=== PATIENT | male | born 1990 ===

== ENCOUNTER 2020-10-05 18:57 | Emergency (ER) | payer OTHER ==
[~2020-10-05] VITALS: Ht 172.7 cm; Wt 83.0 kg
[2020-10-05 19:00] VITALS: BP 151/99
--- NOTE | 2020-10-05 19:04 | NUR ---
DONNA FROM WORK. PT WAS FOUND LAYING OR SITTING BY HIS CAR AND COWORKER CALLED EMS. PT APPEARS TACHYCARDIC, SPEAKING INCOMPREHENSIBLE WORDS. WHEN TAKING PT TEMP PT WAS LICKING PROBE. PT KEEPS REINSTATING SAME WORDS OVER AND OVER AGAIN WELL PT SEEMS LIKE HE MAY BE PRESENTING WITH SOME SIGN OF PSYCHOSIS. PT DENIES HEAD TRAUMA. HAVING TROUBLE REMEMBER WHAT HAS HAPPENED THROUGHOUT DAY. DENIES SI/HI AND ANY PSYCH DISORDERS. ATTACHD TO CARD/SP02/BP MONITIRS. CHANGED INTO GOWN. WCTM WILL SPEAK TO CHARGE ABOUT PLACEMENT FOR PT
--- NOTE | 2020-10-05 19:25 | NUR ---
SPOKE TO CHARGE NURSE. WE WILL BE KEEPING PT IN THIS ROOM FOR NOW. 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 ATTEMPTIN TO HAVE PT URINATE BUT HE KEEPS REFUSING. EKG COMPLETED EARLIER
--- NOTE | 2020-10-05 19:35 | NUR ---
PT TAKEN TO BATHROOM. AMBULATED WITH STEADY GAIT. [facility] STATED HE COULD NOT WALK WHEN THEY PICKED HIM UP PT ATTEMPTING UA SAMPLE IN BATHROOM PT ASKED THIS NURSE IF I WANTED TO STAY AND WATCH AND STUCK HIS TONGUE OUT. WCTM
[2020-10-05 19:36] LABS: BASOPHILS % (AUTO) 1 % (0-1); EOSINOPHILS % (AUTO) 0 % (1-7); LYMPHOCYTES % (AUTO) 31 % (22-44); MEAN CORPUSCULAR HEMOGLOBIN 31.7 pg (27.5-34.5); MEAN PLATELET VOLUME 7.3 fL (7.4-10.4); MONOCYTES % (AUTO) 9 % (2-9); NEUTROPHILS % (AUTO) 59 % (42-75); PLATELET COUNT 361 x10^3/uL (130-400); RED BLOOD COUNT 5.18 x10^6/uL (4.38-5.82); RED CELL DISTRIBUTION WIDTH 13.1 % (9.4-14.8)
--- NOTE | 2020-10-05 19:44 | NUR ---
PT FOUND DOWN THE HALLWAY BY REGISTRATION. PT STATED HE LEFT UA IN BATHROOM. WHEN CHECKING BATHROOM THERE WAS NO URINE AND PT STATED THAT HE DID NOT HAVE TO PEE. PT BACK IN ROOM, ATTACHED TO ALL MONTORS. SPEAKING TO PEOPLE ON PHONE IN [place] LANGUAGE. [facility]
[2020-10-05 19:47] LABS: ALANINE AMINOTRANSFERASE 31 U/L (12-78); ANION GAP 8 mmol/L (5-15); CALCIUM 8.6 mg/dL (8.5-10.1); CHLORIDE 109 mmol/L (98-107)
[2020-10-05 19:49] LABS: SALICYLATE LEVEL < 1.7 mg/dL (2.8-20.0)
--- NOTE | 2020-10-05 19:53 | NUR ---
PT ELOPED. PT RAN THROUGH HOSPITAL WHILE BEING FOLLOWED BY A FELLOW ED NURSE. PT WAS SEEN RUNNING OUT OF [facility] BY SECURITY. PT WAS WEARING GOWN. PT LEFT HAT AND KEYS WHICH WAS GIVEN TO SECURITY BY THIS NURSE.
[2020-10-05 19:57] LABS: ALKALINE PHOSPHATASE 120 U/L (45-117); BILIRUBIN,TOTAL 0.3 mg/dL (0.2-1.0); TOTAL PROTEIN 7.9 g/dL (6.4-8.2)
== END 2020-10-05 19:57 | disposition left against medical advice (07) ==
LOC: ED 19:00
DX: F39 Unspecified mood [affective] disorder (principal); R55 Syncope and collapse; R00.0 Tachycardia, unspecified; F17.200 Nicotine dependence, unspecified, uncomplicated
CPT/HCPCS: 36415; 80053; 80299; 80320; 80329; 84443; 85025; 93005; 99284; G0480